=== PATIENT | male | born 1975 ===

== ENCOUNTER 2021-02-26 04:47 | Emergency (ER) | payer OTHER ==
[~2021-02-26] VITALS: Ht 172.7 cm; Wt 73.0 kg
[2021-02-26 04:50] VITALS: BP 113/87
--- NOTE | 2021-02-26 06:12 | NUR ---
per document review attorney, pt was escorted out by security
== END 2021-02-26 06:14 | disposition left against medical advice (07) ==
LOC: ED 05:00
DX: R53.83 Other fatigue (principal); R42 Dizziness and giddiness; Z53.21 Procedure and treatment not carried out due to patient leaving prior to being seen by health care provider
CPT/HCPCS: 93005